=== PATIENT | male | born 1935 | race Caucasian/White ===

== ENCOUNTER 2016-12-06 09:21 | Emergency (ER) | payer MEDICARE, OTHER ==
[2016-12-06 09:39] VITALS: BP 156/96
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
== END 2016-12-06 10:49 | disposition home or self-care (01) ==
LOC: UCEAST 09:21
DX: S20.219A Contusion of unspecified front wall of thorax, initial encounter (principal); V43.52XA Car driver injured in collision with other type car in traffic accident, initial encounter; Y93.89 Activity, other specified; Y92.410 Unspecified street and highway as the place of occurrence of the external cause
CPT/HCPCS: 99202; G0463